=== PATIENT | male | born 1965 | race Caucasian/White ===

== ENCOUNTER 2017-03-09 00:18 | Emergency (ER) | payer SELFPAY ==
[~2017-03-09] VITALS: Ht 190.5 cm; Wt 79.4 kg
--- NOTE | ~2017-03-09 | CR72 ---
[facility] A Service of [facility] & [facility] RADIOLOGY TEXT RESULTS PATIENT: MARIBETH FOX LOCATION: [facility] : 61 UNIT #: [id number] AGE: [address]: PABLITO ASHRAF APRN SEX: M ORDER DR: [id number] [facility] [address] [place], [place] [address] [id number] E MR#: [id number] Acc #: [id number] NAME: MARIBETH FOX : 1965 SEX: M STUDY DATE/TIME: 03/09/2017 01:47 UNIT: [facility] ROOM: STUDY DESCRIPTION: CR Chest Single View Portable Attending Physician: Pablito Ashraf Aprn Ordering Physician: Pablito Ashraf Aprn Primary Care Physician: Primary Care Physician No MEDICAL IMAGING REPORT This report is preliminary unless electronic signature is present EXAM Portable chest 03/09 at 01:47 INDICATIONS Cough, chills and sore throat for 3 days. FINDINGS AP portable chest is compared with 11/26/2015. Cardiac and mediastinal contours are normal. Lungs are emphysematous but clear. No pneumothorax. There is an old left clavicle fracture. IMPRESSION Emphysema. No active disease. Dictated by... Anthony Montes De Oca Jr., M.D. THIS IS AN ELECTRONICALLY VERIFIED REPORT Anthony Montes De Oca Jr., M.D. at 03/12/2017 5:50 AM GAYLE/faraz TD: 03/09/2017 10:41 JOB #: [id number] MEDICAL IMAGING REPORT Page 1 of 1 COPY
[~2017-03-09 00:18] MED LIST: ULTRAM PO
[2017-03-09 03:03] LABS: AMPHETAMINE POS (NEG); BARBITURATES NEG (NEG); BENZODIAZEPINES NEG (NEG); COCAINE NEG (NEG); MARIJUANA NEG (NEG); OPIATES NEG (NEG); TRICYCLIC ANTIDEPRESSANTS NEG (NEG); U METHADONE NEG (NEG)
== END 2017-03-09 03:39 | disposition home or self-care (01) ==
LOC: CED 00:18
PROVIDERS: Nurse Practitioner Family
DX: J06.9 Acute upper respiratory infection, unspecified (principal); F15.10 Other stimulant abuse, uncomplicated; I10 Essential (primary) hypertension; Z91.14 Patient's other noncompliance with medication regimen; F41.9 Anxiety disorder, unspecified; F17.210 Nicotine dependence, cigarettes, uncomplicated; Z88.5 Allergy status to narcotic agent
CPT/HCPCS: 71010; 80307; 87651; 99283